=== PATIENT | male | born 1945 | race Asian ===

== ENCOUNTER 2017-07-05 15:44 | Emergency (ER) | payer SELFPAY ==
[2017-07-05 16:11] VITALS: BP 113/77
--- NOTE | 2017-07-05 16:34 | UC ---
Hip/Pelvis Pain - HPI Summary HPI Summary: 72 yo [place] male c/o left lower back and hip s/p fall today in the backyard after tripping in a ditch. Denied LOC, dizziness - History Of Current Complaint Chief Complaint: UCBackPain Stated Complaint: FALL Time Seen by Provider: 07/05/17 16:14 Hx Obtained From: Patient Onset/Duration: Sudden Onset Severity Initially: Moderate Severity Currently: Moderate Pain Intensity: 8 Character Of Pain: Sharp, Dull, Aching Aggravating Factor(s): Movement Alleviating Factor(s): Nothing Associated Signs And Symptoms: Positive: Negative - Allergies/Home Medications Allergies/Adverse Reactions: Allergies Allergy/AdvReac Type Severity Reaction Status Date / Time No Known Allergies Allergy Verified 07/05/17 16:04 PMH/Surg Hx/FS Hx/Imm Hx Previously Healthy: Yes - Surgical History Surgical History: None - Social History Alcohol Use: None Substance Use Type: None Smoking Status (MU): Never Smoked Tobacco Review of Systems Constitutional: Negative Skin: Negative Eyes: Negative ENT: Negative Respiratory: Negative Cardiovascular: Negative Gastrointestinal: Negative Genitourinary: Negative Motor: Negative Neurovascular: Negative Musculoskeletal: Other: - see HPI Neurological: Negative Psychological: Negative All Other Systems Reviewed And Are Negative: Yes Physical Exam Triage Information Reviewed: Yes Appearance: Well-Appearing Vital Signs: Initial Vital Signs Temp 37.0 C 07/05/17 16:05 Pulse 80 07/05/17 16:05 Resp 16 07/05/17 16:05 BP 113/77 07/05/17 16:05 Pulse Ox 99 07/05/17 16:05 Eye Exam: Normal ENT Exam: Normal Dental Exam: Normal Neck exam: Normal Neck: Positive: 1 Respiratory Exam: Normal Cardiovascular Exam: Normal Abdominal Exam: Normal Musculoskeletal: Positive: Other: - moderate TTP over post left iliac crest and paraspinal muscles of lumbar spine, no radiculopathy Neurological Exam: Normal Psychological Exam: Normal Skin Exam: Normal Hip Injury Course/Dx - Course Course Of Treatment: XR of left hip XR neg for fx. XR of lumbar spine - old compression fx - pt's pain is not in midline but over the left post ilium- bony contusion likely, rather than acute fx. NSAIDS PRN, pt declined crutches, no heavy lifting, light messages and walks - Differential Dx/Diagnosis Provider Diagnoses: bony hip contusion Discharge - Sign-Out/Discharge Documenting (check all that apply): Discharge/Admit/Transfer - Discharge Plan Condition: Stable Disposition: HOME Prescriptions: Naproxen [Naprosyn 500 mg tab] 500 mg PO BID 10 Days #20 tablet Patient Education Materials: Fall Prevention for Older Adults (ED) Referrals: No Primary Care Phys,NOPCP [Primary Care Provider] - - Billing Disposition and Condition Condition: STABLE Disposition: HOME
--- NOTE | 2017-07-05 17:21 | RAD ---
INDICATION: Trauma left iliac crest pain. COMPARISON: There are no prior studies available for comparison. TECHNIQUE: 5 views of the lumbar spine were obtained including lateral, oblique, AP and a coned-down lateral view of the lumbar sacral junction. FINDINGS: The vertebra appear osteopenic and are normal alignment. There is a mild compression fracture involving the superior endplate of the L1 vertebral body age indeterminate although likely old. No other fractures are seen. There is mild degenerative disc disease at the L4-L5 level. There is a large amount retained stool. IMPRESSION: 1. MILD COMPRESSION FRACTURE OF THE L1 VERTEBRAL BODY AGE INDETERMINATE ALTHOUGH LIKELY OLD. 2. LARGE AMOUNT RETAINED STOOL.
--- NOTE | 2017-07-05 17:22 | RAD ---
INDICATION: Fall left iliac crest pain. COMPARISON: There are no prior studies available for comparison. TECHNIQUE: An AP view of the pelvis and frontal and lateral views of the left hip were obtained. FINDINGS: The bones are in normal alignment. No fracture is seen. Joint spaces appear maintained. IMPRESSION: NO EVIDENCE FOR FRACTURE, IF THE PATIENT'S SYMPTOMS PERSIST RECOMMEND FOLLOW-UP IMAGING.
== END 2017-07-05 17:50 | disposition home or self-care (01) ==
LOC: UCEAST 15:44
DX: S70.02XA Contusion of left hip, initial encounter (principal); W01.0XXA Fall on same level from slipping, tripping and stumbling without subsequent striking against object, initial encounter; Y93.9 Activity, unspecified; Y92.096 Garden or yard of other non-institutional residence as the place of occurrence of the external cause; M84.48XA Pathological fracture, other site, initial encounter for fracture; K59.00 Constipation, unspecified
CPT/HCPCS: 72110; 99202; G0463